=== PATIENT | female | born 1990 | race Caucasian/White ===

== ENCOUNTER 2016-12-22 15:10 | Emergency (ER) | payer MEDICAID ==
[2016-12-22 15:46] VITALS: BP 114/70; PULSE 73; RESP 16; TEMP 98.5; O2SAT 99
--- NOTE | 2016-12-22 16:24 | ED PDOC ---
HPI: General Adult Time Seen by Provider: 12/22/16 15:23 Chief Complaint (Nursing): Abnormal Skin Integrity Chief Complaint (Provider): Rash History Per: Patient History/Exam Limitations: no limitations Onset/Duration Of Symptoms: Days (x2 weeks) Current Symptoms Are (Timing): Still Present Additional Complaint(s): Nicolette Teixeira is a 26 year old female that presents to the ED with a chief complaint of an itchy rash that is present bilaterally on her underarms and under her breasts. Patient states that the rash first began two weeks ago on her left underarm and has since spread. She reports that she took one dose of Benadryl with no relief. Past Medical History Reviewed: Historical Data, Nursing Documentation, Vital Signs Vital Signs: Last Vital Signs Temp 98.5 F 12/22/16 15:41 Pulse 73 12/22/16 15:41 Resp 16 12/22/16 15:41 BP 114/70 12/22/16 15:41 Pulse Ox 99 12/22/16 16:28 - Medical History PMH: No Chronic Diseases - Family History Family History: States: Unknown Family Hx - Home Medications Home Medications: Ambulatory Orders Medication Instructions Recorded Methylprednisolone [Medrol Dose 4 mg PO DAILY #21 mg 12/22/16 Pack (21 tabs)] - Allergies Allergies/Adverse Reactions: Allergies Allergy/AdvReac Type Severity Reaction Status Date / Time No Known Allergies Allergy Verified 12/22/16 15:40 Review of Systems Skin: Positive for: Rash (present b/l on underarms and under her breats) Physical Exam - Reviewed Nursing Documentation Reviewed: Yes Vital Signs Reviewed: Yes - Physical Exam Appears: Positive for: Non-toxic, No Acute Distress Head Exam: Positive for: ATRAUMATIC, NORMOCEPHALIC Skin: Positive for: Normal Color, Warm, Rash (erythematous, dry, scaled patch to b/l axilla, 2 cm patch to left upper thigh.) Extremity: Positive for: Normal ROM. Negative for: Swelling Neurologic/Psych: Positive for: Alert, Oriented. Negative for: Motor/Sensory Deficits - ECG O2 Sat by Pulse Oximetry: 99 (RA) Pulse Ox Interpretation: Normal Medical Decision Making Medical Decision Making: Impression: Contact Dermatitis Plan: * Benadryl 25 mg PO * Prednisone 40 mg PO * Reevaluation Scribe Attestation: Documented by Lena Almendarez, acting as a scribe for Lorri Diego PA-C. Provider Scribe Attestation: All medical record entries made by the Scribe were at my direction and personally dictated by me. I have reviewed the chart and agree that the record accurately reflects my personal performance of the history, physical exam, medical decision making, and the department course for this patient. I have also personally directed, reviewed, and agree with the discharge instructions and disposition. Disposition - Clinical Impression Clinical Impression: Rash - Disposition Disposition: Routine/Home Disposition Time: 17:40 Condition: STABLE Prescriptions: Methylprednisolone [Medrol Dose Pack (21 tabs)] 4 mg PO DAILY #21 mg Instructions: Acute Rash (ED) Forms: [employer]uckus (Serbian) - POA Present On Arrival: None
== END 2016-12-22 18:24 | disposition home or self-care (01) ==
LOC: H.ER 15:10
DX: L25.9 Unspecified contact dermatitis, unspecified cause (principal)

== ENCOUNTER 2017-03-08 09:57 | Emergency (ER) | payer MEDICAID ==
[2017-03-08 10:14] VITALS: BP 125/58; PULSE 69; TEMP 99.2; O2SAT 100
[2017-03-08 10:21] VITALS: RESP 18
--- NOTE | 2017-03-08 10:32 | ED PDOC ---
HPI: Female Pain Time Seen by Provider: 03/08/17 10:02 Chief Complaint (Nursing): Female Genitourinary History Per: Patient (Cyst cavinal area x 2 days kimbrough when showering and on urination. No discharge or fever.) Onset/Duration Of Symptoms: Days (2) Quality Of Discomfort: Burning Associated Symptoms: denies: Fever, Urinary Symptoms Alleviating Factors: None Abnormal Vaginal Bleeding: No Past Medical History Vital Signs: Last Vital Signs Temp 99.2 F 03/08/17 10:20 Pulse 69 03/08/17 10:20 Resp 18 03/08/17 10:20 BP 125/58 L 03/08/17 10:20 Pulse Ox 100 03/08/17 10:20 - Medical History PMH: No Chronic Diseases - Family History Family History: States: Unknown Family Hx - Home Medications Home Medications: Ambulatory Orders Medication Instructions Recorded Methylprednisolone [Medrol Dose 4 mg PO DAILY #21 mg 12/22/16 Pack (21 tabs)] Clindamycin [Cleocin] 300 mg PO Q8 #30 cap 03/08/17 Naproxen [Naprosyn] 500 mg PO Q12H #20 tab 03/08/17 - Allergies Allergies/Adverse Reactions: Allergies Allergy/AdvReac Type Severity Reaction Status Date / Time No Known Allergies Allergy Verified 03/08/17 10:20 Review of Systems Constitutional: Negative for: Fever Genitourinary Female: Negative for: Vaginal Discharge Physical Exam - Physical Exam Appears: Positive for: Non-toxic, No Acute Distress Pelvic Exam: Negative for: External Exam Normal (1 cm cyst lower pole draining small amount purulent material) - ECG O2 Sat by Pulse Oximetry: 100 Disposition - Clinical Impression Clinical Impression: Cyst - Patient ED Disposition Is Patient to be Admitted: No Counseled Patient/Family Regarding: Diagnosis, Need For Followup, Rx Given - Disposition [facility] Disposition: Routine/Home Disposition Time: 10:33 Condition: FAIR Prescriptions: Clindamycin [Cleocin] 300 mg PO Q8 #30 cap Naproxen [Naprosyn] 500 mg PO Q12H #20 tab Instructions: Cyst (ED)
== END 2017-03-08 11:14 | disposition home or self-care (01) ==
LOC: H.ER 09:57
DX: N89.8 Other specified noninflammatory disorders of vagina (principal)